=== PATIENT | male | born 1990 | race Caucasian/White ===

== ENCOUNTER 2021-11-18 17:23 | Emergency (ER) | payer OTHER, SELFPAY ==
--- OUTSIDE RECORDS SUMMARY | 2021-11-18 17:25 | XMS REPORT | Continuity of Care Document ---
:1990 Author Organization [facility] t Address [address] [place] [address] Care Team Providers Name Role Phone Carter_C Attending Clinician Unavailable MARES Attending Clinician [phone] [facility] Attending Clinician Unavailable Carter_C Admitting Clinician Unavailable Payers Payer Name Policy Type Policy Number Effective Date Expiration Date [facility] [id number] Problems Condition Condition Condition Status Onset Resolution Last Treating Co mments Source Name Details Category Date Date Treatment Clinician Date Attention Attention Problem Active Rajat mariajose deficit Deficit 8-19 Family hyperactiv Hyperactiv 00:00: Pr actic ity 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 Social History Social Habit Start Date Stop Date Quantity Comments Source Sex Assigned At Male [facility] Smoking Status Start Date Stop Date Source Former Smoker Brendan Black P alyssia Unknown if ever smoked [facility] Medications Ordered Filled Start Stop Current Ordering Indication Dosage Frequency Signature Comments Components Source Medication Medication Date Date Medication? Clinician (SIG) Name Name Adderall 10 No take 1 [facility] tablet 2-11 tablet by Healt h 00:00: Oral route 00 3 times per day for ADHD Adderall XR Adderall XR No 1capsul Q1D Adderall [facility] 20 mg 20 mg e(s) XR 20 mg Family capsule,ext capsule,ext capsule,ex Practic ended ended tended e release release release Take 1 Take 1 Take 1 capsule capsule capsule every day every day every day by oral by oral by oral route. route. route. Adderall 10 Adderall 10 No 1 Q1D [facility] [place] mg tablet mg tablet 10 mg Fami ly Take 1 Take 1 tablet Practic tablet tablet Take 1 e every day every day tablet by oral by oral every day route at route at by oral noon. noon. route at noon. Vital Signs Vital Name Observation Time Observation Value Comments Source BP Diastolic 2019-07-06 00:00:00 70 mm[Hg] [facility] Height 2019-07-06 00:00:00 72 [in_i] [facility] BMI (Body Mass Index) 2019-07-06 00:00:00 24 kg/m2 [facility] BP Systolic 2019-07-06 00:00:00 110 mm[Hg] [facility] Body Weight 2019-07-06 00:00:00 177.1 [lb_av] [facility] Body height 2019-03-24 08:23:00 72.00 [in_us] [facility] Body Weight 2019-03-24 08:23:00 180.80 [lb_av] [facility] Systolic 2019-03-24 08:23:00 91 mm[Hg] [facility] 2019-03-24 08:23:00 56 mm[Hg] [facility] Diastolic Heart Beat 2019-03-24 08:23:00 68 /min [facility] Body Temperature 2019-03-24 08:23:00 98.60 [degF] [facility] Respiratory Rate 2019-03-24 08:23:00 18 /[facility] Body mass index 2019-03-24 08:23:00 24.50 kg/m2 [facility] Body height 2018-12-29 14:10:00 72.00 [in_us] [facility] Patient Body Weight 2018-12-29 14:10:00 181.20 [lb_av] [facility] Systolic 2018-12-29 14:10:00 108 mm[Hg] [facility] 2018-12-29 14:10:00 77 mm[Hg] [facility] Diastolic Heart Beat 2018-12-29 14:10:00 97 /min [facility] Body Temperature 2018-12-29 14:10:00 98.60 [degF] [facility] Respiratory Rate 2018-12-29 14:10:00 16 /min [facility] Body mass index 2018-12-29 14:10:00 24.60 kg/m2 [facility] Body height 2018-08-14 08:15:00 72.00 [in_us] [facility] Patient Body Weight 2018-08-14 08:15:00 191.40 [lb_av] [facility] Systolic 2018-08-14 08:15:00 105 mm[Hg] [facility] 2018-08-14 08:15:00 57 mm[Hg] [facility] Diastolic Heart Beat 2018-08-14 08:15:00 61 /min [facility] Body Temperature 2018-08-14 08:15:00 96.20 [degF] [facility] Respiratory Rate 2018-08-14 08:15:00 16 /min [facility] Body mass index 2018-08-14 08:15:00 26.00 kg/m2 [facility] s [facility] Procedures This patient has no known procedures. Encounters Start End Encounter Admission Attending Care Care Encounter Source Date/Time Date/Time Type Type Clinicians Facility Department ID 2019-11-25 2019-11-25 Outpatient Phillip [facility] [id number] [facility] 12:32:00 12:32:00 [id number] Family Practic e 2019-07-06 2019-07-[address] [facility] [place] - [id number] [facility] 00:00:00 00:00:00 Brendan Rehman MD: [id number] Family Jose ogden [address] [address] , Ph. 2019-03-24 2019-03-24 Outpatient MAYA MARES [facility] [id number] Access 08:23:00 08:23:00 [id number] [facility] [id number] 2019-03-24 2019-03-24 [facility] [id number] Access 00:00:00 00:00:00 H, PROVIDER Willie platt 2019-03-24 2019-03-24 Outpatient [facility] [id number] Access 00:00:00 00:00:00 H, PROVIDER [id number] Health [id number] 2018-12-29 2018-12-29 Outpatient [facility] [id number] Access 00:00:00 00:00:00 H, PROVIDER Willie platt 2018-12-29 2018-12-29 Outpatient MARESMAYA BAEZ [facility] [id number] Access 00:00:00 00:00:00 [id number] Health [id number] 2018-12-29 2018-12-29 Outpatient [facility] [id number] Access 00:00:00 00:00:00 H, PROVIDER [id number] Health [id number] 2018-09-11 2018-09-11 Outpatient [facility] [id number] Access 00:00:00 00:00:00 H, PROVIDER Willie platt 2018-09-11 2018-09-11 [facility] [id number] Access 00:00:00 00:00:00 H, PROVIDER [id number] Health [id number] 2018-08-19 2018-08-19 Outpatient [facility] [id number] Access 00:00:00 00:00:00 H, PROVIDER Willie platt 2018-08-19 2018-08-19 Outpatient [facility] [id number] Access 00:00:00 00:00:00 H, PROVIDER [id number] Health [id number] 2018-08-18 2018-08-18 Outpatient MAYA MARES [facility] [id number] Access 00:00:00 00:00:00 [id number] Health [id number] 2018-08-14 2018-08-14 Outpatient MAYA MARES [facility] [id number] Access 08:15:00 08:15:00 [id number] Health [id number] 2018-08-14 2018-08-14 Outpatient [facility] [id number] Access 00:00:00 00:00:00 H, PROVIDER Willie platt 2018-08-14 2018-08-14 Outpatient [facility] [id number] Access 00:00:00 00:00:00 H, PROVIDER [id number] Health [id number] [id number] [id number] Results This patient has no known results.
[2021-11-18] MEDS ORDERED: IBUPROFEN 200 MG TAB PO ONE (18:32)
[2021-11-18 21:11] LABS: SARS-COV-2 RT PCR POSITIVE (NEGATIVE)
--- NOTE | 2021-11-18 21:14 | EDPHYS ---
Physician Documentation [facility] Name: Eliel Martinez Age: 31 yrs Sex: Male : 1990 Arrival Date: 11/18/2021 Time: 17:23 Bed Waiting Private MD: ED Physician Francesco Osman HPI: 11/18 21:23 This 31 yrs old Male presents to ER via Ambulatory with complaints of Covid Test- Sore jr8 Throat, Chills. 21:23 The patient has not experienced similar symptoms in the past. The patient has not jr8 recently seen a physician. Symptoms started 4 days ago. Wanted confirmatory test . Historical: - Allergies: 18:28 No Known Allergies; iw - Home Meds: 18:28 Adderall XR Oral [Active]; iw - PMHx: 18:28 None; iw - Immunization history:: Client reports having NOT received the Covid vaccine. - Social history:: Smoking status: Reported history of juuling and/or vaping. ROS: 21:23 Constitutional: Positive for body aches, chills, fever. jr8 21:23 ENT: Positive for sore throat. 21:23 Respiratory: Positive for cough, Negative for shortness of breath, sputum production, wheezing. 21:23 All other systems are negative. Vital Signs: 18:27 Pulse 112; Resp 18; Temp 100.6; Pulse Ox 97% on R/A; iw 18:28 Weight 102.06 kg; Height 6 ft. 0 in. (182.88 cm); iw 18:28 Body Mass Index 30.52 (102.06 kg, 182.88 cm) iw MDM: 21:13 Data reviewed: vital signs, nurses notes, lab test result(s), and as a result, I will jr8 discharge patient. Data interpreted: Pulse oximetry: on room air is 97 %. Interpretation: normal. Counseling: I had a detailed discussion with the patient and/or guardian regarding: the historical points, exam findings, and any diagnostic results supporting the discharge/admit diagnosis, lab results, the need for outpatient follow up, a family practitioner, to return to the emergency department if symptoms worsen or persist or if there are any questions or concerns that arise at home. 21:14 Patient medically screened. jr8 21:23 ED course: Was able to talk to patient on phone about symptoms. Did HPI and ROS but was jr8 unable to complete full physical because he left before getting results and remained of examination. Feels ok and did not want to come back for prescriptions. Would come back if he were to worsen. S/S given to watch for over the phone as well . 11/18 18:29 Order name: COVID-19/FLU A+B (Document "Date of Onset" if Symptomatic); Complete Time: iw 21:11/18 18:30 Order name: Strep; Complete Time: 21:13 11/18 20:18 Order name: Throat Culture EDMS Administered Medications: 18:32 Drug: Motrin (ibuprofen) 600 mg Route: PO; Disposition: 11/19 06:18 Co-signature as Attending Physician, Francesco Osman MD. mh7 Disposition Summary: 11/18/21 21:25 Eloped Disposition: after being seen by provider jr8 Reason: wait time jr Condition: Stable(11/18/21 21:25) jr Diagnosis - SARS-associated coronavirus as the cause of diseases classified elsewhere(11/18/21 8 21:25) Followup: jr8 - With: Private Physician - When: 2 - 3 days - Reason: Recheck today's complaints, Continuance of care, Re-evaluation by your physician Signatures: Dispatcher [employer] Shanelle Kahn, RN RN Olvin Manriquez PA PA jr8 Francesco Osman MD MD mh7 Corrections: (The following items were deleted from the chart) 11/18 21:25 21:14 Home 8 jr8 21: 21:14 new jr8 jr8 21:25 21:14 have improved jr8 jr8 21:25 21:14 Stable jr8 jr8 21:25 21:14 SARS-associated coronavirus as the cause of diseases classified elsewhere jr8 8
--- NOTE | 2021-11-18 21:14 | ER ---
Nurse's Notes [facility] Name: Eliel Martinez Age: 31 yrs Sex: Male : 1990 Arrival Date: 11/18/2021 Time: 17:23 Bed Waiting Private MD: Diagnosis: SARS-associated coronavirus as the cause of diseases classified elsewhere Presentation: 11/18 18:27 Chief complaint: Spouse and/or significant other states: covid/strep symptoms X 4 days. iw Coronavirus screen: Client presents with at least one sign or symptom that may indicate coronavirus-19. Ebola Screen: Patient negative for fever greater than or equal to 101.5 degrees Fahrenheit, and additional compatible Ebola Virus Disease symptoms Patient denies exposure to infectious person. Patient denies travel to an Ebola-affected area in the 21 days before illness onset. No symptoms or risks identified at this time. Initial Sepsis Screen: Does the patient meet any 2 criteria? No. Patient's initial sepsis screen is negative. Does the patient have a suspected source of infection? No. Patient's initial sepsis screen is negative. Risk Assessment: Do you want to hurt yourself or someone else? Patient reports no desire to harm self or others. Onset of symptoms was November 13, 2021. 18:27 Method Of Arrival: Ambulatory iw 18:27 Acuity: REJI 4 iw Historical: - Allergies: 18:28 No Known Allergies; iw - Home Meds: 18:28 Adderall XR Oral [Active]; iw - PMHx: 18:28 None; iw - Immunization history:: Client reports having NOT received the Covid vaccine. - Social history:: Smoking status: Reported history of juuling and/or vaping. Vital Signs: 18:27 Pulse 112; Resp 18; Temp 100.6; Pulse Ox 97% on R/A; iw 18:28 Weight 102.06 kg; Height 6 ft. 0 in. (182.88 cm); iw 18:28 Body Mass Index 30.52 (102.06 kg, 182.88 cm) iw ED Course: 17:23 Patient arrived in ED. ds1 18:28 Triage completed. iw 18:59 Strep Sent. kj1 18:59 COVID-19/FLU A+B (Document "Date of Onset" if Symptomatic) Sent. kj1 21:11 Olvin Manriquez PA is PHCP. jr8 21:11 Francesco Osamn MD is Attending Physician. jr8 21:30 Patient's name was called from ER lobby. No response. Unable to locate patient. Will bb disposition as left without being seen by a provider. Administered Medications: 18:32 Drug: Motrin (ibuprofen) 600 mg Route: PO; iw Outcome: 21:14 Discharge ordered by . jr8 21:30 Patient left the ED. bb Signatures: Christiane Leung ds1 Margy Adams RN RN bb Shanelle Burrell RN RN Olvin Manriquez PA PA jr8 Emily Melton kj1
[2021-11-18 21:42] VITALS: TEMP 100.6; O2SAT 97
== END 2021-11-18 21:30 | disposition left against medical advice (07) ==
LOC: ER 17:23
DX: U07.1 COVID-19 (principal)
CPT/HCPCS: 0240U; 87070; 87081; 99283